=== PATIENT | male | born 2000 | race American Indian/Alaskan Native ===

== ENCOUNTER 2021-04-04 16:58 | Emergency (ER) | payer SELFPAY ==
[2021-04-04 21:02] VITALS: BP 141/92
[2021-04-04] MEDS ORDERED: NEOMY 3.5 MG/BACIT 400 UNITS/POLY B 5000 UNITS/GM OINT PACKET TP ONE (21:08)
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
[2021-04-04] MEDS ORDERED: IBUPROFEN 800 MG TAB PO ONE (21:52)
[2021-04-04] MEDS ORDERED: ACETAMINOPHEN 500 MG TAB PO ONE (21:52)
== END 2021-04-04 22:32 | disposition home or self-care (01) ==
LOC: ED 16:58
DX: S29.012A Strain of muscle and tendon of back wall of thorax, initial encounter (principal); S50.01XA Contusion of right elbow, initial encounter; Z79.899 Other long term (current) drug therapy; V87.7XXA Person injured in collision between other specified motor vehicles (traffic), initial encounter; Y93.89 Activity, other specified; Y92.488 Other paved roadways as the place of occurrence of the external cause; Y99.8 Other external cause status
CPT/HCPCS: 73080; 99283; A6250